=== PATIENT | female | born 1935 | race Caucasian/White ===

== ENCOUNTER 2016-06-12 08:53 | Inpatient (IN) | payer OTHER ==
[2016-06-05 13:46] LABS: HEMATOCRIT 35.4 % (37.0-47.0); HEMOGLOBIN 11.8 gm/dL (12.0-15.0); MCH 29.1 pg (26.0-34.0); MCHC 33.4 g/dL (28.0-37.0); MCV 86.9 fL (80.0-100.0); RBC 4.08 mil/uL (4.20-5.00); RDW 15.8 % (10.5-14.5); WBC 7.7 thou/uL (4.0-11.0)
[2016-06-05 13:47] LABS: URINE BILIRUBIN NEGATIVE (Negative); URINE BLOOD NEGATIVE (Negative); URINE COLOR YELLOW; URINE GLUCOSE-RANDOM* NEGATIVE (Negative); URINE KETONES NEGATIVE (Negative); URINE LEUKOCYTES-REFLEX NEGATIVE (Negative); URINE PROTEIN (DIPSTICK) NEGATIVE (Negative); URINE SPECIFIC GRAVITY 1.015 (1.003-1.035); URINE UROBILINOGEN 0.2 E.U./dl (0.2-1.0)
[2016-06-05 13:59] LABS: ALBUMIN 3.3 g/dL (3.4-5.0); CALCIUM 9.3 mg/dL (8.5-10.1); CREATININE 0.9 mg/dL (0.6-1.3); INR 2.9; POTASSIUM 3.5 mmol/L (3.5-5.1); PROTIME 29.9 Seconds (9.3-11.4)
[~2016-06-12] VITALS: Ht 160 cm; Wt 89.4 kg
--- NOTE | ~2016-06-12 | O ---
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 PROCEDURE: 1. Removal of left hip antibiotic cement spacer. 2. Revision, left total hip arthroplasty. SURGEON: Ish Nieves M.D. QUILTER FIXER: Phuong Porter PA-C. ANESTHESIA: General endotracheal. IMPLANTS: [employer]hew size 54 R3 acetabular cup with one acetabular screw size 16 high offset Synergy press fit stem and a size 36 -3 cobalt chrome head. ESTIMATED BLOOD LOSS: 900 mL. SPECIMENS: Cultures were taken, intraoperative frozen section was performed showing her to have 5 white cells and very isolated areas per high power field. CONDITION ON LEAVING THE OR: Stable. INDICATIONS FOR PROCEDURE: The patient is a 80-year-old female who previously has undergone a left total hip arthroplasty. She ended up developing an acute postoperative infection with methicillin-sensitive Staphylococcus aureus. She was treated with explantation and placement of an antibiotic spacer. She has undergone 6 weeks of IV vancomycin treatment and her sed rate has normalized. After discussion with her, she elected for removal of her antibiotic cement spacer and revision left total hip arthroplasty. DESCRIPTION OF PROCEDURE: Risks, benefits, alternatives, complications were discussed in detail with the patient including but not limited to risk of anesthesia, risk of damage to nerves, arteries, blood vessels, risk for [facility] [address] [place] [address] OPERATIVE REPORT Name: YADIRA PATEL Room #: 429-P [facility]#: [id number] Admission: 06/12/16 Attend Phys: Ish Nieves MD Discharge: Date of : 37 Report #: [id number] infection, bleeding, risk for continued infection and need for reoperation. Informed consent was obtained from the patient. The left hip was appropriately marked in the preoperative holding area. 1 gram IV vancomycin was given for preoperative antibiotics. She was brought to the operating room and placed in the supine position on operating room table. General endotracheal anesthesia was induced without complication. She was then placed in the right lateral decubitus position with the left hip uppermost. Left hip and lower extremity were then prepped and draped in normal sterile fashion. Timeout was performed properly identifying the patient, procedure as well as the instrumentation and implants. All in the operating room were in agreement. The previous incision was used and this was opened with 10 blade through the skin. Upon entering the adipose layer, there was noted to be a seroma that was easily drained with the suction. Cultures of this fluid were taken, however. A fresh #10 blade was used to make an incision in the fascial layer and this was taken proximally and distally with curved Sanchez scissor. The Charnley retractor was placed. The scarred posterior tissue was then taken off the posterior aspect of the femur with Bovie cautery, developing a full thickness flap. The fluid within the hip joint itself appeared noninfected. The hip was dislocated and the antibiotic spacer was easily removed. After this, 3 sections of synovium were taken from around the hip joint and sent for pathology for frozen section. These came back as 5 white cells per high power field only in a few isolated specimens. It was felt that given clinically her infection appeared to be cleared and that we could proceed with hip arthroplasty. Deep acetabular retractors were placed and the acetabulum was reamed up to a size 54, at which point there was excellent bleeding cancellous bone. This was trialed with a size 53 R3 acetabular cup, which was found to have a good fit. A final size 54 R3 acetabular cup was placed and one acetabular screw was placed for backup fixation. Polyethylene liner was placed. Attention was then turned to the femur. This was reamed and broached up to a size 16, at which point the size 16 broach was stable. This trialed with a high offset neck and a 36 -0 head. Hip was reduced, taken through range of motion, found to be stable and found to have equal leg lengths. Hip was dislocated and a final size 16 high offset Synergy press fit stem was placed. This was trialed again with a 36 -3 head. Hip was reduced, taken through range of motion, found to be stable, found to have equal leg lengths. Hip was dislocated again and a final size 36 -3 cobalt chrome head was placed. Hip was reduced, taken through range of motion, found to be stable, found to have equal leg lengths. 1 gram of vancomycin powder was placed in the hip joint. The wound was thoroughly irrigated with normal saline prior to placement of the ____. Fascia was closed with 0 Vicryl. A deep drain was placed above the fascial closure in the adipose layer and the adipose layer was closed with 0 Vicryl. Skin was closed with 2-0 Vicryl and skin staple. A Prevena wound VAC dressing was placed secondary to her having persistent wound drainage after her [facility] [address] [place] [address] OPERATIVE REPORT Name: YADIRA PATEL Gillian Room #: 429-P [facility] M.R.#: [id number] Admission: 06/12/16 Attend Phys: Ish Nieves MD Discharge: Date of : 37 Report #: [id number] index surgery. She tolerated this procedure well and went to the recovery room under care of anesthesia postoperatively. <ELECTRONICALLY SIGNED> By: Ish Nieves MD 06/15/16 0758 1629 1801 Ish Nieves MD /nt
--- NOTE | ~2016-06-12 | HC ---
[facility] [place] [address] CONSULTATION Name: YADIRA PATEL Room #: 429-P [facility] IN M.R.#: [id number] Admission: 06/12/16 Attend Phys: Ish Nieves MD Discharge: 06/15/16 Date of : 37 Report #: [id number] THIS REPORT FOR: //name// CC: Yamilka Tinoco DATE OF SERVICE: 06/13/2016 INTERNAL MEDICINE CONSULTATION The patient is seen for consultation on 06/13/2016. REASON FOR CONSULTATION: Medical management. REQUESTING PHYSICIAN: Dr. Nieves. HISTORY OF PRESENT ILLNESS: The patient is a 80-year-old female who was electively admitted here for left hip replacement. The patient had complicated left hip replacement earlier this year at [facility]. She had infection. She was treated, and at this time, she was admitted for elective replacement. The patient had surgery yesterday, on 06/12/2016. She did well and her postop course has been uncomplicated. She is currently pain-free. She denies any complaints. The patient has history of hypertension, AFib and sleep apnea. She had pacemaker placed in 2013. Her heart rate is stable. She has not been started on Coumadin yet. PAST MEDICAL HISTORY: 1. Arthritis. 2. Hypertension. 3. Atrial fibrillation. 4. Status post pacemaker placement in 2013. 5. Sleep apnea. 6. Dyslipidemia. CURRENT MEDICATIONS: Reviewed and documented in the patient's chart. Please refer to the medication section for details. FAMILY HISTORY: Reviewed and not pertinent to the patient's current condition. SOCIAL HISTORY: The patient does not smoke cigarettes and does not drink alcohol. [facility] [address] [place] [address] CONSULTATION Name: YADIRA PATEL Room #: 429-P [facility] IN ..#: [id number] Admission: 06/12/16 Attend Phys: Ish Nieves MD Discharge: 06/15/16 Date of : 37 Report #: [id number] REVIEW OF SYSTEMS: As above in the HPI section, all others negative. PHYSICAL EXAMINATION: GENERAL: The patient is healthy looking elderly female who is in no apparent distress. She is alert and oriented times 3. VITAL SIGNS: Blood pressure is 147/59, heart rate is 70, respiration is 18 and temperature is 97.9. HEENT EXAMINATION: Pupils are equal. Eye movements are normal. The patient has anicteric sclerae. NECK: Supple. The patient has no thyromegaly. RESPIRATORY EXAMINATION: Chest moves symmetrically with breathing. LUNGS: Clear to auscultation bilaterally. CARDIOVASCULAR EXAMINATION: The patient has regular rhythm and rate. She has no murmurs, gallops or rubs. GASTROINTESTINAL EXAMINATION: Abdomen is soft, nondistended and nontender. Bowel sounds are normal. The patient has no hepatomegaly or splenomegaly. MUSCULOSKELETAL EXAMINATION: There is no edema, cyanosis or clubbing. Range of motion could not be fully assessed. NEUROLOGICAL EXAMINATION: The patient is alert and oriented times 3. Her examination is nonfocal. SKIN EXAMINATION: Dry and warm. No skin lesions are appreciated. LABORATORY DATA: Hemoglobin today is 7.7, from 8.3 about a week ago. On 06/05/2016, the patient's metabolic profile was unremarkable. ASSESSMENT AND PLAN: 1. Status post left hip replacement surgery. The patient is recovering well and this is managed by primary team. 2. Atrial fibrillation, status post pacemaker placement. The patient is already on amiodarone. Coumadin should be resumed when appropriate from surgical standpoint. 3. Hypertension, acceptable control. Blood pressure is borderline high. This will be monitored and medications will be adjusted as necessary. 4. Dyslipidemia. The patient is on Lipitor, that will be continued. We will follow the patient during the hospitalization and we will provide further recommendations depending on the patient's condition. Once again, thank you very much for allowing us to participate in the care of your patient. <ELECTRONICALLY SIGNED> By: Sebastian Albarran MD 06/20/16 1351 1236 1330 Sebastian Albarran MD /nt
--- NOTE | ~2016-06-12 | HC ---
[facility] [place] [address] CONSULTATION Name: YADIRA PATEL Room #: 429-P [facility] IN M.R.#: [id number] Admission: 06/12/16 Attend Phys: Ish Nieves MD Discharge: 06/15/16 Date of : 37 Report #: [id number] THIS REPORT FOR: //name// CC: Yamilka Tinoco HISTORY OF PRESENT ILLNESS: The patient is a 80-year-old white female who had a prior left total hip replacement on 03/30/2016, at an outside hospital, [facility]. She had problems with continual drainage after the surgery and ended up having an infected left total hip hemiarthroplasty for which she underwent explantation with spacer placement on 05/10/2016. She was diagnosed with Methicillin-sensitive Stap aureus. She was given 6 weeks of IV antibiotics. Her sed rate decreased. She was thus admitted back to [facility] and underwent removal of the spacer with revision left total hip hemiarthroplasty on 06/12/2016. She continues on the IV vancomycin. She has a wound VAC in place. She is being monitored with her Coumadin for anticoagulation and being monitored regarding wound culture results. We are seeing her in rehabilitation medicine consultation. PAST MEDICAL HISTORY: Includes atrial fibrillation, rate controlled; hypertension, she had a pacemaker placed in 2013, history of dyslipidemia, arthritis, and obstructive sleep apnea. MEDICATIONS: Please see the above noted medication listing. FAMILY HISTORY: Noncontributory. HABITS: No history of ETOH or tobacco abuse. SOCIAL HISTORY: Lives in a house, 2 steps in with 12 inside down to the basement. Her is currently on hospice at an outside facility. She lives in the house with her son who is present at night. She is by herself during the day. REVIEW OF SYSTEMS: Some discomfort as expected in the left hip. Denies any chest pain, shortness of breath or abdominal discomfort. No focal upper extremity pain complaints. PHYSICAL EXAMINATION: GENERAL: A 80-year-old white female, in no obvious distress. She is alert and pleasant. VITAL SIGNS: Last recorded temperature is 97.2, pulse 76, respirations 18, and blood pressure 132/70. HEENT: Appeared to be benign. Cranial nerves are grossly intact. Facies are symmetric. EXTREMITIES: She has functional range of motion of both upper extremities, [facility] [address] [place] [address] CONSULTATION Name: YADIRA PATEL Room #: 429-P [facility] IN ..#: [id number] Admission: 06/12/16 Attend Phys: Ish Nieves MD Discharge: 06/15/16 Date of : 37 Report #: [id number] strength is grade 4- to 4/5. DTRs are trace to 1. Left hip, the wound VAC is in place. No focal calf swelling. She does have some diffuse distal lower extremity edema. Distal strength of that left ankle is a grade 4-. She has functional range of motion with strength a grade 4-4- of the right lower extremity. Tone appeared to be intact. She is needing contact guard assistance with sit to stand and contact guard for ambulation with the front wheeled walker up to 150 feet. She is needing contact guard assistance for basic dressing activities. ASSESSMENT: A 80-year-old white female with the following problem list: 1. Infected left total hip hemiarthroplasty with prior explantation, spacer placement, now with removal of spacer and revision left total hip arthroplasty on 06/12/2016, allowed weightbearing as tolerated. 2. IV antibiotics with monitoring of infection status postoperatively. 3. Wound VAC, left hip incision. 4. Prior history of methicillin-sensitive Staphylococcus aureus hip infection, completed 6 weeks IV antibiotics. 5. Atrial fibrillation, rate controlled. 6. Anticoagulation for the atrial fibrillation. 7. Hypertension. PLAN: The patient is a candidate for an acute in-hospital inpatient rehabilitation stay. From a preadmission screening perspective: 1. Prior level of function is well delineated above. 2. Expect level of improvement would be for the patient to become modified independent with transfers, mobility and ADLs, so that she can hopefully return back to the home setting. She will need to be fully independent as there will not be anyone there during the day. We would anticipate a fairly short length of stay, probably around 8-10 days pending progress. 3. Evaluation of the patient's risk for clinical complications. She needs to be monitored regarding postoperative infections complications, her wound as well as the issues noted above with her medical comorbidities. 4. Condition that caused the need for rehabilitation would be infected total hip arthroscopy, status post removal of spacer and revision total hip hemiarthroplasty on 06/12/2016. 5. Treatments need would include PT and OT 1 and 1-1/2 hours per day, each five days a week throughout the duration of the acute inpatient rehabilitation stay. 6. Anticipated discharge destination would be back home. 7. Anticipated post-discharge treatments would include home healthcare therapies. 8. The patient meets medical necessity criteria with the complications from her prior hip arthroplasty. She has the wound VAC. She is being monitored regarding infectious status during the postoperative period. She has the above medical comorbidities. She meets medical necessity criteria. She has an [facility] [address] [place] [address] CONSULTATION Name: YADIRA PATEL Room #: 429-P [facility] IN ..#: [id number] Admission: 06/12/16 Attend Phys: Ish Nieves MD Discharge: 06/15/16 Date of : 37 Report #: [id number] appropriate rehab diagnosis, she does have appropriate tolerance for an acute rehab program and has appropriate discharge goals back to the home. <ELECTRONICALLY SIGNED> By: Lincoln Malik MD 06/22/16 1447 1023 1610 Lincoln Malik MD /nt
--- NOTE | ~2016-06-12 | S ---
[facility] [place] [address] SURGICAL PATH RPT PROCEDURE Name: YADIRA PATEL Room #: 429-P ADM IN M.R.#: [id number] Admission: 06/12/16 Date of : 39 Discharge: Report #: [id number] Path Case #: [id number] PATHOLOGY REPORT COLLECTION DATE: 06/12/2016 RECEIVED DATE: 06/12/2016 SUBMITTING PHYS: Dr. Ish Nieves OTHER PHYS: SPECIMEN(S) RECEIVED: A.Left hip joint capsule B.Left hip synovium C.Anterior capsule * * * * * * * * * * * * FINAL DIAGNOSIS: A. Synovium, left hip joint capsule, biopsy: - Fibrinoid degeneration and calcifications. - Few fragments of reactive bone. B. Synovium, left hip synovium, biopsy: - Scattered foci of acute inflammation (greater than 5 neutrophils/hpf) identified. - Background of moderate chronic inflammation as well as numerous giant cells. - Few fragments of fibrinoid degeneration and calcification. C. Synovium, anterior capsule, biopsy: - Scattered foci of acute inflammation (greater than 5 neutrophils/hpf) identified. - Background of moderate chronic inflammation. - Fragments of reactive bone present. (IUV:csd; d/t: 06/15/2016) PATHOLOGIST: Shahla Quintero M.D. REPORT ELECTRONICALLY SIGNED BY: Shahla Quintero M.D. DATE/TIME: 06/15/2016 17:08 * * * * * * * * * * * * GROSS PATHOLOGY: A. Specimen A is received fresh from the OR labeled with the patient's name, and "left hip joint capsule" consists of multiple soft red-jin fragments of tissue measuring an aggregate of 3.5 x 3 x 0.5 cm. Approximately 70% of the specimen is submitted for frozen section as FSA1, subsequently submitted for permanent sections as A1. The unfrozen portion of tissue is submitted for permanent sections only as A2 and A3. B. Specimen B is received fresh from the OR labeled with the [facility] [address] [place] [address] SURGICAL PATH RPT PROCEDURE Name: YADIRA PATEL Gillian Room #: 429-P [facility] IN .R.#: [id number] Admission: 06/12/16 Date of : 39 Discharge: Report #: [id number] Path Case #: [id number] patient's name, and "left hip synovium" consists of soft red-jin fragments of tissue measuring an aggregate of 3.5 x 3.5 x 0.5 cm. 60% of the specimen is submitted for frozen section as FSB1, this is subsequently submitted for permanent sections as B1. The unfrozen portion of tissue is submitted for permanent sections only as B2. C. Specimen C is received fresh from the OR labeled with the patient's name, and "anterior capsule" consists of soft red-jin fragments of tissue measuring an aggregate of 3 x 2.5 x 0.5 cm. 60% of the specimen is submitted for frozen section as FSC1, this is subsequently submitted for permanent sections as C1. The unfrozen portion of tissue is submitted for permanent sections only as C2. (IUV:mgr; d/t: 06/12/16) FROZEN SECTION DIAGNOSIS: (Clarice Quintero M.D.) FSA1, left hip joint capsule, biopsy: - Fibrinoid degeneration and calcification. FSB1, left hip synovium, biopsy: - Few foci with at least 5 neutrophils per high power field along with chronic inflammation and calcification. FSC1, anterior capsule, biopsy: - Few foci with at least 5 neutrophils per high power field along with chronic inflammation and calcification. These findings are discussed with Dr. Ish Nieves in OR5 at [facility]. It was decided at the time that the neutrophils identified and few foci might represent margination rather than acute inflammation. Clinical correlation was suggested. (IUV:mgr; d/t: 06/12/16) Testing performed by [facility] at [facility] [address] [place] [id number] CLINICAL HISTORY: Revision INITIAL CPT CODE(S): A; 05013, 13617 B; 83435, 67875 C; 95853, 26973 Professional services performed by [facility] at [facility] [address] [place] [address] Technical services performed by [facility] at [address] [place] [address], [address], [place] [address]. [facility] [address] [place] [address] SURGICAL PATH RPT PROCEDURE Name: YADIRA PATEL Gillian Room #: 429-P ADM IN M.R.#: [id number] Admission: 06/12/16 Date of : 39 Discharge: Report #: [id number] Path Case #: [id number] [facility] [address] [address] PHONE: [phone] DIRECTOR: Brian Sanchez M.D. * * * END OF REPORT * * *
[~2016-06-12 08:53] MED LIST: AMLODIPINE BESYL5 MG PO; APAP500 PO; ASPIRIN325; BACTRIM DS TAB1 EACH PO; BENICAR HCT 401 EAC1 PO; BYSTOLIC 5 MG5 M1 PO; CARDIZEM CD240 MG PO; CARTIA XT240 M1 PO; COLACE 100 MG100 MG PO; COLACE100 MG PO; COUMADIN 3 MG TA3 M1 PO; COUMADIN 4 MG TA4 M1 PO; COUMADIN 5 MG TA5 M1 PO; CRANBERRY450 M1 PO; ESTRACE; FISH OIL 1,0001 EAC5 PO; FISH OIL 1,001000 M2 PO; HYDROCHLOROTHIA25 M1 PO; LASIX 20 MG TAB20 MG PO; LIPITOR10 MG PO; LOSARTAN-HCTZ1 EAC3 PO; MIRALAX17 GM PO; MULTI-DAY VITA1 EACH PO; MULTIPLE VITAM1 EAC3 PO; PACERONE 200 M200 M1 PO; PERCOCET PO; POTASSIUM20 PO; PRO-STAT LIQUID30 M1 PO; PROBIOTIC1 EAC1 PO; PROMETRIUM; PYRIDIUM200 MG PO; TRAMADOL 50 MG50 MG PO; TUMS PO; VANCOMYCIN1 GM/1001 IV; VITAMIN C + RO500 MG PO; VITAMIN C500 M1 PO; VITAMIN D32000 UNI1 PO; VITAMIN E 400I400 I1 PO
[2016-06-12 11:39] LABS: INR 1.2
[2016-06-12 12:49] VITALS: BP 159/87
[2016-06-12 16:12] LABS: HEMATOCRIT 25.6 % (37.0-47.0); HEMOGLOBIN 8.3 gm/dL (12.0-15.0)
[2016-06-12 20:00] VITALS: BP 119/44
[2016-06-12 20:30] VITALS: BP 117/51
[2016-06-12 20:45] VITALS: BP 102/50
[2016-06-12 21:00] VITALS: BP 120/51
[2016-06-12 22:00] VITALS: BP 118/57
[2016-06-13 03:58] LABS: HEMATOCRIT 23.2 % (37.0-47.0); HEMOGLOBIN 7.7 gm/dL (12.0-15.0); MCH 29.3 pg (26.0-34.0); MCHC 33.3 g/dL (28.0-37.0); MCV 88.1 fL (80.0-100.0); RBC 2.64 mil/uL (4.20-5.00); WBC 7.8 thou/uL (4.0-11.0)
[2016-06-13 04:00] VITALS: BP 136/55
[2016-06-13 08:13] VITALS: BP 147/59
[2016-06-13 15:49] VITALS: BP 130/48
[2016-06-13 19:31] VITALS: BP 132/83
[2016-06-14 04:08] VITALS: BP 147/67
[2016-06-14 06:45] LABS: ABSOLUTE NEUTROPHILS 7.1 thou/uL (1.4-8.2); BASOPHILS 0.2 % (0.0-2.0); EOSINOPHILS 0.7 % (0.0-3.0); HEMATOCRIT 23.7 % (37.0-47.0); HEMOGLOBIN 7.9 gm/dL (12.0-15.0); LYMPHOCYTES 15.1 % (24.0-44.0); MCH 29.3 pg (26.0-34.0); MCHC 33.3 g/dL (28.0-37.0); MCV 88.2 fL (80.0-100.0); MONOCYTES 8.6 % (1.0-8.0); PLATELET COUNT 165 thou/uL (150-400); POLYS 75.4 % (36.0-66.0); RBC 2.68 mil/uL (4.20-5.00); RDW 16.6 % (10.5-14.5); WBC 9.4 thou/uL (4.0-11.0)
[2016-06-14 06:51] LABS: MANUAL DIFF NO
[2016-06-14 07:05] LABS: CALCIUM 9.1 mg/dL (8.5-10.1); CREATININE 0.9 mg/dL (0.6-1.3); POTASSIUM 4.3 mmol/L (3.5-5.1)
[2016-06-14 07:15] VITALS: BP 146/47
[2016-06-14 15:35] VITALS: BP 122/51
[2016-06-14 20:00] VITALS: BP 144/55
[2016-06-15] VITALS (8 sets, daily range): BP systolic 132–151; BP diastolic 44–70
[2016-06-15 06:27] LABS: HEMATOCRIT 23.2 % (37.0-47.0); HEMOGLOBIN 7.7 gm/dL (12.0-15.0); MCH 29.4 pg (26.0-34.0); MCHC 33.2 g/dL (28.0-37.0); MCV 88.4 fL (80.0-100.0); RBC 2.63 mil/uL (4.20-5.00); RDW 16.3 % (10.5-14.5); WBC 7.6 thou/uL (4.0-11.0)
[2016-06-15 06:30] LABS: INR 1.1; PROTIME 11.5 Seconds (9.3-11.4)
[2016-06-15] MEDS ORDERED: NEURONTIN 300300 M1 PO (16:19)
[2016-06-15] MEDS ORDERED: MS CONTIN15 MG PO (16:23)
== END 2016-06-15 23:32 | DRG 467 ==
LOC: PRE 08:53 → TBA 10:33 → 4E 10:33 → PRE 12:29 → 4E 19:06
PROVIDERS: Internal Medicine Endocrinology, Diabetes & Metabolism; Orthopaedic Surgery; Thoracic Surgery (Cardiothoracic Vascular Surgery)
PROC: 0SPB08Z Removal of Spacer from Left Hip Joint, Open Approach (ICD-10-PCS; principal; 2016-06-12)
PROC: 0SWE0JZ Revision of Synthetic Substitute in Left Hip Joint, Acetabular Surface, Open Approach (ICD-10-PCS; 2016-06-12)
PROC: 30233N1 Transfusion of Nonautologous Red Blood Cells into Peripheral Vein, Percutaneous Approach (ICD-10-PCS; 2016-06-15)
DX: T84.52XA Infection and inflammatory reaction due to internal left hip prosthesis, initial encounter (principal); E44.1 Mild protein-calorie malnutrition; I10 Essential (primary) hypertension; D64.9 Anemia, unspecified; I48.91 Unspecified atrial fibrillation; Z96.89 Presence of other specified functional implants; Z96.659 Presence of unspecified artificial knee joint; E78.5 Hyperlipidemia, unspecified; Z96.642 Presence of left artificial hip joint; G47.33 Obstructive sleep apnea (adult) (pediatric); Y83.9 Surgical procedure, unspecified as the cause of abnormal reaction of the patient, or of later complication, without mention of misadventure at the time of the procedure; Z79.01 Long term (current) use of anticoagulants; Z86.14 Personal history of Methicillin resistant Staphylococcus aureus infection; Z98.49 Cataract extraction status, unspecified eye; Z90.710 Acquired absence of both cervix and uterus; Z88.8 Allergy status to other drugs, medicaments and biological substances; Z88.6 Allergy status to analgesic agent; Z88.1 Allergy status to other antibiotic agents; Z91.041 Radiographic dye allergy status
CPT/HCPCS: 10183; 50010; 50101; 50382; 50414; 50455; 50612; 50953; 51130; 51412; 51771; 53000; 53078; 53367; 54118; 56460; 56524; 56527; 56528; 56530; 57095; 62110; 62900; 70005

== ENCOUNTER 2016-06-15 16:27 | Inpatient (IN) | payer OTHER ==
[~2016-06-15] VITALS: Ht 160 cm; Wt 98.7 kg
--- NOTE | ~2016-06-15 | HC ---
[facility] [place] [address] CONSULTATION Name: YADIRA PATEL Room #: 505-P ADM IN M.R.#: [id number] Admission: 06/15/16 Attend Phys: Lincoln Malik MD Discharge: Date of : 39 Report #: [id number] THIS REPORT FOR: //name// CC: Lincoln Tinoco DATE OF SERVICE: 06/20/2016 ATTENDING PHYSICIAN: Lincoln Malik M.D. HIGH DENSITY PRESS OPERATOR: Finn Gerber, PhD CLINICAL PRESENTATION: The patient is a 80-year-old female admitted to the rehabilitation unit at [facility] for a comprehensive inpatient rehabilitation program to improve functional mobility, activities of daily living and self-care and mental status secondary to an infected left total hip hemiarthroplasty with a left total hip revision and arthroplasty on 06/12/2016. Her assessment also includes a wound VAC with left hip incision, prior history of methicillin-sensitive staphylococcus aureus hip infection with having had 6 weeks IV antibiotics, atrial fibrillation, anticoagulation for the atrial fibrillation and hypertension. The patient reports having required the hip replacement on March 30 and has a result of a complication has been in the hospital since that time. Additional stress has been present with the severe illness of her and his subsequent . Her two days ago. She had been in the hospital at the time of his . The patient and her son and her through phone conversation, decided to place him in hospice because of his severe medical medical status. The patient has 2 children. One child lives within the [place] area. The patient has been primarily a homemaker throughout her life. Her daughter lives outside the state. She had 1 sister and 1 brother. She reports her social support as adequate. However, her brother is severely ill. Her sister is reported to have had a stroke, she has met with her on a weekly basis prior to hospitalization and remains a good social support. TECHNIQUES UTILIZED: Clinical interview, review of medical records, staff consultation and behavioral observation, mini mental status exam 2 brief version. EXAMINATION FINDINGS: The patient was alert and cooperative with the assessment. She accurately described events surrounding her hospitalization. Her mood was pleasant and thought content organized. She does not report auditory or visual hallucinations. There is no report of suicidal ideation. She was not tearful during the interview as she described the recent decline in [facility] [address] [place] [address] CONSULTATION Name: YADIRA PATEL Room #: 505-P [facility] IN M.R.#: [id number] Admission: 06/15/16 Attend Phys: Lincoln Malik MD Discharge: Date of : 37 Report #: [id number] her 's health and subsequent . She does not report problems with appetite, sleep, energy level or cognitive function. She also denies subjective anxiety or depression. Her performance on the MMSE 2 brief version was within normal limits with a raw score of 16 of 16. She was 3/3 for initial registration, 5/5 for orientation to time and 5/[address] She was 3/3 for immediate recall of 3 items after a brief time delay and distraction. 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 RECOMMENDATIONS: Continued reassurance and social support will assist in her adjustment. She will likely to have an increase in depressive symptoms upon her return home in light of her 's recent . She may benefit from a brief assessment of emotional state following discharge to clarify any issues of adjustment. She appears to have been actively involved in the decision making to place her in hospice which helps provide a sense of control over decision making. However, she was unable to physically see him given her own hospitalization. A is being arranged and at that time increased emotional support may be helpful. Cognitive function appears well maintained. Thank you very much for allowing me to provide the consultation on this patient. <ELECTRONICALLY SIGNED> By: Finn Gerber, PhD 06/21/16 1533 [id number] Finn Gerber, PhD /nt
--- NOTE | ~2016-06-15 | HC ---
[facility] [place] [address] CONSULTATION Name: YADIRA PATEL Room #: 505-P ADM IN M.R.#: [id number] Admission: 06/15/16 Attend Phys: Lincoln Malik MD Discharge: Date of : 37 Report #: [id number] THIS REPORT FOR: //name// CC: Lincoln Tinoco REASON FOR CONSULTATION: I was asked to evaluate concerning left total hip arthroplasty infection. HISTORY OF PRESENT ILLNESS: The patient was a 80-year-old, on 03/30/2016 had a left total hip arthroplasty replacement for degenerative arthritis. She continued to have drainage from this area of the incision and was diagnosed with methicillin-susceptible Staphylococcus aureus infection that required explantation on 05/10/2016. She was treated with vancomycin for 6 weeks. Her sedimentation rate normalized. She had a spacer in place. On 06/12/2016, she underwent revision arthroplasty without complication. The intraoperative cultures are final and negative for bacterial growth. The patient feels well without fever, chills or sweats. She has an incisional VAC in place. She has had minimal amount of pain and is re-ambulating very well. She completed a course of vancomycin today. REVIEW OF SYSTEMS: Notes no cough, sputum, nausea, vomiting or diarrhea. PAST MEDICAL HISTORY, FAMILY HISTORY, SOCIAL HISTORY: Unchanged from previous consultation. ALLERGIES: AMOXICILLIN, CEPHALEXIN, CONTRAST DYE, NAPROSYN, PRAZOSIN, PROPOXYPHENE, OXYCODONE, ESTRADIOL AND NYLON. MEDICATIONS: As noted on her MAY. PHYSICAL EXAMINATION: GENERAL: She was up to her chair in no distress. HEENT: Unremarkable. CHEST: Clear. HEART: Regular. ABDOMEN: Soft. EXTREMITIES: Left hip incision with an incisional VAC in place. Moderate edema. LABORATORY STUDIES: Sodium 139, potassium 3.8, bicarbonate 29, creatinine 1.0. Liver function test normal except for an alkaline phosphatase of 135. Hemoglobin 8.9, white count 8.5, platelet count 194,000. Differential remarkable for 13% eosinophils. IMPRESSION AND PLAN: A 80-year-old status post revision total hip arthroplasty, now postoperative day #5. Final culture results are negative. The patient is [address] [place] [address] CONSULTATION Name: YADIRA PATEL Room #: 505-P ADM IN [facility].#: [id number] Admission: 06/15/16 Attend Phys: Lincoln Malik MD Discharge: Date of : 37 Report #: [id number] progressing nicely with normal white count. Recommend observation off antibiotics at this time. We will see how she progresses in rehabilitation. <ELECTRONICALLY SIGNED> By: Harjinder Pastor MD 06/18/16 0920 [id number] 19 Harjinder Pastor MD /nt
--- NOTE | ~2016-06-15 | PLAN ---
[facility] [place] [address] REHAB UNIT PLAN OF CARE Name: YADIRA PATEL Room #: 505-P ADM IN M.R.#: [id number] Admission: 06/15/16 Attend Phys: Lincoln Malik MD Discharge: Date of : 37 Report #: [id number] THIS REPORT FOR: //name// CC: Lincoln Tinoco MD The patient was seen back today in followup. She is in no distress. Last recorded temperature 98, pulse 70, respirations 18, blood pressure 147/62. The patient is alert, pleasant. She has the wound VAC in place, left hip. No focal calf swelling. Functionally, she is working in therapies with transfers, min assist, gait contact guard 60 feet with a front-wheeled walker. She is requiring min assist to go up and down 4 steps. In occupational therapy, lower body dressing is mod assist, upper body dressing is supervision. She is continuing on the IV vancomycin. ASSESSMENT: 1. 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 2. Continuing on IV antibiotics. 3. Wound VAC over left hip incision. 4. Prior history of methicillin-sensitive staphylococcus aureus hip infection, completed 6 weeks IV antibiotics. 5. Atrial fibrillation, rate controlled. 6. Anticoagulated for the atrial fibrillation. 7. Hypertension. PLAN: The overall plan of care is based on the preadmission screen, post-admission physician evaluation and information garnered from therapy assessments. 1. Estimated length of stay is approximately 10 days. 2. Medical prognosis is reasonably good. 3. Anticipated interventions includes the interdisciplinary acute inpatient rehabilitation program with PT and OT, rehab nursing assisting regarding medication management, skin care prophylaxis, bowel and bladder issues and nursing education. Case management is involved as well as the call center support consultant physicians. 4. Anticipated functional outcomes would be for the patient to become modified independent with transfers, mobility and ADLs at the walker level. 5. Discharge destination would be back home. She will need to be independent as she does not have assistance during the day. 6. Expected therapy by discipline includes PT and OT 1-1/2 hours per day each five days a week throughout the duration of the acute inpatient rehabilitation stay. ADDENDUM: [address] [address] REHAB UNIT PLAN OF CARE Name: YADIRA PATEL Room #: 505-P [facility] IN [facility]#: [id number] Admission: 06/15/16 Attend Phys: Lincoln Malik MD Discharge: Date of : 37 Report #: [id number] The patient missed some therapy minutes yesterday June 16 secondary to testing with going down for an x-ray and also IV management. <ELECTRONICALLY SIGNED> By: Lincoln Malik MD 06/22/16 1455 [id number] Lincoln Malik MD /daisy
--- NOTE | ~2016-06-15 | H ---
[facility] [place] [address] HISTORY AND PHYSICAL Name: YADIRA PATEL Room #: 505-P ADM IN M.R.#: [id number] Admission: 06/15/16 Attend Phys: Lincoln Malik MD Discharge: Date of : 37 Report #: [id number] THIS REPORT FOR: //name// CC: Lincoln Tinoco DATE OF SERVICE: 06/16/2016 HISTORY OF PRESENT ILLNESS: The patient is a 80-year-old white female who originally had a prior left total hip replacement on 03/30/2016 at an outside hospital [facility]. She had problems with continual of drainage after surgery and ended up having an infected left total hip hemiarthroplasty for which she underwent explantation with spacer placement on 05/10/2016. She was diagnosed with Methicillin-sensitive Staphylococcus aureus. She was given 6 weeks of IV antibiotics. Her sed rate decreased. She was thus admitted back to [facility] and underwent removal of the spacer with revision left total hip hemiarthroplasty on 06/12/2016. She continues on the IV vancomycin and has a wound VAC in place. She was being monitored with Coumadin for anticoagulation and being monitored regarding wound culture results. She was felt to be ready and was transferred for acute in-hospital inpatient rehabilitation. PAST MEDICAL HISTORY: Includes atrial fibrillation, rate controlled, hypertension. She had a pacemaker placed in 2013, history of dyslipidemia, arthritis, obstructive sleep apnea. MEDICATIONS: Please see the medication listing as noted. Each of these medications were reconciled on admission to the acute rehab [facility]. FAMILY HISTORY: Noncontributory. HABITS: No history of ETOH or tobacco abuse. SOCIAL HISTORY: Lives in a house, 2 steps and with 12 inside down into the basement. Her is currently in hospice at an outside facility. She lives in a house with her son who is present at night, works during the day. She is by herself during the day. REVIEW OF SYSTEMS: Some expected discomfort of the left hip. No complaints of chest pain, shortness of breath, abdominal discomfort. No focal upper extremity pain complaints. PHYSICAL EXAMINATION: GENERAL: A 80-year-old white female in no obvious distress. VITAL SIGNS: Last recorded temperature 37.1, pulse 70, respirations 18, blood pressure 124/48. The patient was seen earlier. Was sleepy, but easily arouses. [address] [address] HISTORY AND PHYSICAL Name: YADIRA PATEL Room #: 505-P [facility] IN ..#: [id number] Admission: 06/15/16 Attend Phys: Lincoln Malik MD Discharge: Date of : 37 Report #: [id number] HEENT: Facies appeared to be symmetric. CHEST: Sounded clear to auscultation. CARDIOVASCULAR: Irregularly irregular. ABDOMEN: Bowel sounds positive, nontender. NEUROLOGIC: She has functional range of motion of both upper extremities. Strength is grade 4- to 4/5. DTRs are trace to 1. Left hip with a wound VAC in place. There is no focal calf swelling. She has some mild diffuse distal lower extremity edema 1+. Distal strength to left ankle is a grade 4-/5. She has functional range of motion with strength a grade 4- of the right lower extremity. Tone appeared to be intact. She has been needing contact guard assistance for basic functional mobility skills and basic ADLs. She needs contact assistance for basic dressing. She was anemic and was transfused prior to her rehabilitation admission. ASSESSMENT: A 80-year-old white female with the following problem list: 1. 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 2. Continuing IV antibiotics. 3. Wound VAC, left hip incision. 4. Prior history of Methicillin-sensitive Staphylococcus aureus hip infection, completed 6 weeks IV antibiotics. 5. Atrial fibrillation, rate controlled. 6. Anticoagulation for the atrial fibrillation. 7. Hypertension. PLAN: The patient is admitted for acute in-hospital inpatient rehabilitation. From a postadmission physician evaluation perspective, there are no relevant changes since the preadmission screening. Please see the above review of prior and current medical and functional conditions and comorbidities. Please see the patient's prior and current functional status. As far as risk of complication, she does have the multiple medical comorbidities as noted above. Initial plan of care involves the interdisciplinary acute inpatient rehabilitation program with the goal of maximizing the patient's functional independence, so that she can hopefully return back to her prior living situation. The goal would be for her to become modified independent with transfers and mobility issues and ADLs at the boarder, walker level. Prognosis is reasonably good. Estimated length of stay anticipated to be pretty short, probably 5-7 days, potentially longer if needed. Potential barriers would include the multiple medical comorbidities and decreased functional status. She does have appropriate diagnoses for an acute in-hospital inpatient rehabilitation stay. She is appropriate medical necessity criteria that she meets and we will be continuing the IV antibiotics, a wound VAC, assessing culture results, working on functional mobility and ADLs. She has appropriate [facility] [address] [place] [address] HISTORY AND PHYSICAL Name: YADIRA PATEL Room #: 505-P [facility] IN M.R.#: [id number] Admission: 06/15/16 Attend Phys: Lincoln Malik MD Discharge: Date of : 37 Report #: [id number] tolerance for an acute rehab level and has appropriate discharge goals back to the home setting. <ELECTRONICALLY SIGNED> By: Lincoln Malik MD 06/22/16 1447 [id number] Lincoln Malik MD /nt
[~2016-06-15 16:27] MED LIST changes: +MS CONTIN15 MG PO; +NEURONTIN 300300 M1 PO
[2016-06-16 00:49] VITALS: BP 139/58
[2016-06-16 03:23] VITALS: BP 136/51
[2016-06-16 04:20] LABS: HEMATOCRIT 23.8 % (37.0-47.0); MCH 29.1 pg (26.0-34.0); MCHC 33.6 g/dL (28.0-37.0); MCV 86.5 fL (80.0-100.0); RBC 2.76 mil/uL (4.20-5.00); RDW 16.7 % (10.5-14.5); WBC 6.7 thou/uL (4.0-11.0)
[2016-06-16 04:32] LABS: CALCIUM 8.6 mg/dL (8.5-10.1); CREATININE 1.1 mg/dL (0.6-1.3); INR 1.2; POTASSIUM 3.9 mmol/L (3.5-5.1); PROTIME 12.4 Seconds (9.3-11.4)
[2016-06-16 10:48] LABS: % SATURATION 13 % (20-39); IRON 32 ug/dL (50-170); TIBC 241 ug/dL (250-450); UIBC 209 ug/dL
[2016-06-16 16:00] VITALS: BP 132/46
[2016-06-16 20:48] VITALS: BP 147/62
[2016-06-17 05:22] LABS: ABSOLUTE NEUTROPHILS 4.2 thou/uL (1.4-8.2); BASOPHILS 0.3 % (0.0-2.0); EOSINOPHILS 13.1 % (0.0-3.0); HEMATOCRIT 26.7 % (37.0-47.0); HEMOGLOBIN 8.9 gm/dL (12.0-15.0); LYMPHOCYTES 28.8 % (24.0-44.0); MANUAL DIFF NO; MCH 28.9 pg (26.0-34.0); MCHC 33.4 g/dL (28.0-37.0); MCV 86.5 fL (80.0-100.0); PLATELET COUNT 194 thou/uL (150-400); POLYS 48.8 % (36.0-66.0); RBC 3.09 mil/uL (4.20-5.00); RDW 16.8 % (10.5-14.5); WBC 8.5 thou/uL (4.0-11.0)
[2016-06-17 05:28] LABS: INR 1.2; PROTIME 12.1 Seconds (9.3-11.4)
[2016-06-17 05:53] LABS: ALBUMIN 2.8 g/dL (3.4-5.0); MAGNESIUM 1.5 mg/dL (1.8-2.4); POTASSIUM 3.8 mmol/L (3.5-5.1); TOTAL BILIRUBIN 0.5 mg/dL (<0.1-1.0); TOTAL PROTEIN 5.8 g/dL (6.4-8.2)
[2016-06-17 07:49] VITALS: BP 139/60
[2016-06-17 15:47] VITALS: BP 130/53
[2016-06-17 21:08] VITALS: BP 145/47
[2016-06-18 03:00] VITALS: BP 189/63
[2016-06-18 05:44] LABS: ALBUMIN 2.6 g/dL (3.4-5.0); CALCIUM 8.8 mg/dL (8.5-10.1); MAGNESIUM 1.5 mg/dL (1.8-2.4); POTASSIUM 3.9 mmol/L (3.5-5.1); TOTAL BILIRUBIN 0.8 mg/dL (<0.1-1.0); TOTAL PROTEIN 5.2 g/dL (6.4-8.2)
[2016-06-18 08:24] VITALS: BP 142/61
[2016-06-18 17:51] VITALS: BP 173/46
[2016-06-18 20:30] VITALS: BP 147/54
[2016-06-19 03:18] VITALS: BP 157/53
[2016-06-19 15:28] VITALS: BP 137/68
[2016-06-19 21:00] VITALS: BP 128/75
[2016-06-20 05:35] VITALS: BP 156/58
[2016-06-20 16:00] VITALS: BP 147/56
[2016-06-21 04:55] VITALS: BP 165/58
[2016-06-21 05:38] VITALS: BP 165/58
[2016-06-21 16:00] VITALS: BP 137/58
[2016-06-21 20:30] VITALS: BP 144/68
[2016-06-22 04:00] VITALS: BP 150/70
[2016-06-22 08:44] VITALS: BP 139/52
[2016-06-22 08:58] VITALS: BP 139/56
[2016-06-22 15:21] VITALS: BP 162/52
[2016-06-23 03:35] LABS: HEMATOCRIT 27.1 % (37.0-47.0); MCH 28.8 pg (26.0-34.0); MCHC 33.1 g/dL (28.0-37.0); MCV 87.1 fL (80.0-100.0); PLATELET COUNT 207 thou/uL (150-400); RBC 3.11 mil/uL (4.20-5.00); WBC 6.2 thou/uL (4.0-11.0)
[2016-06-23 03:36] LABS: MANUAL DIFF YES
[2016-06-23 04:57] LABS: ANISOCYTOSIS 1+; TOTAL CELL COUNT 100
[2016-06-23 05:14] VITALS: BP 141/64
[2016-06-23 15:20] VITALS: BP 131/46
[2016-06-23 16:51] VITALS: BP 131/46
[2016-06-24 05:41] VITALS: BP 141/60
[2016-06-24 07:10] VITALS: BP 155/55
[2016-06-24 13:47] LABS: INR 1.5
[2016-06-24 15:02] VITALS: BP 131/46
[2016-06-24 16:17] VITALS: BP 165/55
== END 2016-06-24 17:18 | disposition home health service (06) | DRG 561 ==
PROVIDERS: Family Medicine; Nurse Practitioner; Physical Medicine & Rehabilitation
DX: T84.52XA Infection and inflammatory reaction due to internal left hip prosthesis, initial encounter (principal); I10 Essential (primary) hypertension; F32.9 Major depressive disorder, single episode, unspecified; I48.91 Unspecified atrial fibrillation; Z96.642 Presence of left artificial hip joint; E83.42 Hypomagnesemia; E78.5 Hyperlipidemia, unspecified; M19.90 Unspecified osteoarthritis, unspecified site; G47.33 Obstructive sleep apnea (adult) (pediatric); D64.9 Anemia, unspecified; Z79.899 Other long term (current) drug therapy; Z98.49 Cataract extraction status, unspecified eye; Z90.710 Acquired absence of both cervix and uterus; Z79.01 Long term (current) use of anticoagulants; Z95.0 Presence of cardiac pacemaker; Z88.6 Allergy status to analgesic agent; Z88.8 Allergy status to other drugs, medicaments and biological substances; Z88.1 Allergy status to other antibiotic agents; Z91.041 Radiographic dye allergy status; Z90.49 Acquired absence of other specified parts of digestive tract; Z86.14 Personal history of Methicillin resistant Staphylococcus aureus infection
CPT/HCPCS: 10112

== ENCOUNTER → 2019-03-08 | Outpatient (CLI) | payer OTHER | LOC: HYPER 08:43 | DX: L97.811 Non-pressure chronic ulcer of other part of right lower leg limited to breakdown of skin (principal); I87.2 Venous insufficiency (chronic) (peripheral); L84 Corns and callosities; I48.91 Unspecified atrial fibrillation; I10 Essential (primary) hypertension; K21.9 Gastro-esophageal reflux disease without esophagitis; G47.30 Sleep apnea, unspecified; F19.90 Other psychoactive substance use, unspecified, uncomplicated; Z90.710 Acquired absence of both cervix and uterus; Z95.0 Presence of cardiac pacemaker ==

== ENCOUNTER → 2019-03-30 | Outpatient (CLI) | payer OTHER | LOC: HYPER 08:16 | DX: L97.812 Non-pressure chronic ulcer of other part of right lower leg with fat layer exposed (principal); I87.2 Venous insufficiency (chronic) (peripheral); I10 Essential (primary) hypertension; K21.9 Gastro-esophageal reflux disease without esophagitis; I48.91 Unspecified atrial fibrillation; G47.30 Sleep apnea, unspecified; Z79.01 Long term (current) use of anticoagulants; Z96.651 Presence of right artificial knee joint; Z96.642 Presence of left artificial hip joint; Z95.0 Presence of cardiac pacemaker; Z90.710 Acquired absence of both cervix and uterus; Z98.41 Cataract extraction status, right eye ==

== ENCOUNTER → 2019-04-06 | Outpatient (CLI) | payer OTHER | LOC: HYPER 09:54 | DX: L97.812 Non-pressure chronic ulcer of other part of right lower leg with fat layer exposed (principal); S81.811D Laceration without foreign body, right lower leg, subsequent encounter; I87.2 Venous insufficiency (chronic) (peripheral); I10 Essential (primary) hypertension; I48.91 Unspecified atrial fibrillation; G47.30 Sleep apnea, unspecified; K21.9 Gastro-esophageal reflux disease without esophagitis; Z90.49 Acquired absence of other specified parts of digestive tract; Z96.651 Presence of right artificial knee joint; Z96.642 Presence of left artificial hip joint; Z95.0 Presence of cardiac pacemaker; Z98.41 Cataract extraction status, right eye; W18.09XD Striking against other object with subsequent fall, subsequent encounter ==

== ENCOUNTER → 2019-04-13 | Outpatient (CLI) | payer OTHER | LOC: HYPER 08:12 | DX: L97.812 Non-pressure chronic ulcer of other part of right lower leg with fat layer exposed (principal); S81.811D Laceration without foreign body, right lower leg, subsequent encounter; G47.30 Sleep apnea, unspecified; I87.2 Venous insufficiency (chronic) (peripheral); I48.91 Unspecified atrial fibrillation; I10 Essential (primary) hypertension; K21.9 Gastro-esophageal reflux disease without esophagitis; Z95.0 Presence of cardiac pacemaker; Z90.49 Acquired absence of other specified parts of digestive tract; Z96.651 Presence of right artificial knee joint; Z96.642 Presence of left artificial hip joint; Z98.41 Cataract extraction status, right eye; W20.8XXD Other cause of strike by thrown, projected or falling object, subsequent encounter ==

== ENCOUNTER → 2019-04-20 | Outpatient (CLI) | payer OTHER | LOC: HYPER 08:56 | DX: L97.812 Non-pressure chronic ulcer of other part of right lower leg with fat layer exposed (principal); I87.2 Venous insufficiency (chronic) (peripheral); I10 Essential (primary) hypertension; I48.91 Unspecified atrial fibrillation; K21.9 Gastro-esophageal reflux disease without esophagitis; G47.30 Sleep apnea, unspecified; Z79.01 Long term (current) use of anticoagulants; Z95.0 Presence of cardiac pacemaker ==

== ENCOUNTER → 2019-04-27 | Outpatient (CLI) | payer OTHER | LOC: HYPER 08:28 | DX: L97.812 Non-pressure chronic ulcer of other part of right lower leg with fat layer exposed (principal); I87.2 Venous insufficiency (chronic) (peripheral); I10 Essential (primary) hypertension; K21.9 Gastro-esophageal reflux disease without esophagitis; I48.91 Unspecified atrial fibrillation; G47.30 Sleep apnea, unspecified; Z79.01 Long term (current) use of anticoagulants; Z96.642 Presence of left artificial hip joint; Z96.651 Presence of right artificial knee joint; Z95.1 Presence of aortocoronary bypass graft; Z98.41 Cataract extraction status, right eye; Z90.710 Acquired absence of both cervix and uterus; W54.0XXD Bitten by dog, subsequent encounter ==

== ENCOUNTER → 2019-05-04 | Outpatient (CLI) | payer OTHER | LOC: HYPER 09:33 | DX: L97.812 Non-pressure chronic ulcer of other part of right lower leg with fat layer exposed (principal); S81.811D Laceration without foreign body, right lower leg, subsequent encounter; I87.2 Venous insufficiency (chronic) (peripheral); I10 Essential (primary) hypertension; K21.9 Gastro-esophageal reflux disease without esophagitis; G47.30 Sleep apnea, unspecified; I48.91 Unspecified atrial fibrillation; Z96.651 Presence of right artificial knee joint; Z96.642 Presence of left artificial hip joint; Z95.0 Presence of cardiac pacemaker; Z79.01 Long term (current) use of anticoagulants; W20.8XXD Other cause of strike by thrown, projected or falling object, subsequent encounter ==

== ENCOUNTER → 2019-05-11 | Outpatient (CLI) | payer OTHER | LOC: HYPER 09:03 | DX: L97.812 Non-pressure chronic ulcer of other part of right lower leg with fat layer exposed (principal); I87.2 Venous insufficiency (chronic) (peripheral); S81.811D Laceration without foreign body, right lower leg, subsequent encounter; I10 Essential (primary) hypertension; K21.9 Gastro-esophageal reflux disease without esophagitis; G47.30 Sleep apnea, unspecified; I48.91 Unspecified atrial fibrillation; Z79.01 Long term (current) use of anticoagulants; Z95.0 Presence of cardiac pacemaker; Z96.651 Presence of right artificial knee joint; Z96.642 Presence of left artificial hip joint; Z90.710 Acquired absence of both cervix and uterus; Z98.41 Cataract extraction status, right eye; Z90.49 Acquired absence of other specified parts of digestive tract; W20.8XXD Other cause of strike by thrown, projected or falling object, subsequent encounter ==

== ENCOUNTER → 2019-05-18 | Outpatient (CLI) | payer OTHER | LOC: HYPER 08:58 | DX: L97.812 Non-pressure chronic ulcer of other part of right lower leg with fat layer exposed (principal); S81.811D Laceration without foreign body, right lower leg, subsequent encounter; I87.2 Venous insufficiency (chronic) (peripheral); I10 Essential (primary) hypertension; I48.91 Unspecified atrial fibrillation; G47.30 Sleep apnea, unspecified; K21.9 Gastro-esophageal reflux disease without esophagitis; Z90.710 Acquired absence of both cervix and uterus; Z96.651 Presence of right artificial knee joint; Z96.642 Presence of left artificial hip joint; Z98.41 Cataract extraction status, right eye; Z95.0 Presence of cardiac pacemaker; L84 Corns and callosities; W20.8XXD Other cause of strike by thrown, projected or falling object, subsequent encounter ==